=== PATIENT | female | born 1955 | race Asian ===

== ENCOUNTER 2020-08-09 08:20 | Day surgery (SDC) | payer OTHER, SELFPAY ==
[~2020-08-09] VITALS: Ht 139.7 cm; Wt 49.9 kg
[2020-08-09] MEDS ORDERED: LIDOCAINE 2% 100 MG/5 ML UJET TP ONE ×2 (11:49→13:30)
[2020-08-09] MEDS ORDERED: MIDAZOLAM 2 MG/2 ML VIAL ONE (11:49)
[2020-08-09] MEDS ORDERED: fentaNYL citrate 0.05 MG/ML VIAL ONE (11:49)
[2020-08-09] MEDS ORDERED: fentaNYL citrate 0.05 MG/ML VIAL IVP ONE (12:25)
== END 2020-08-09 13:00 | disposition home or self-care (01) ==
LOC: MDS 08:20 → MMU 08:20 → MDS 13:00
PROVIDERS: ATTEND Internal Medicine Gastroenterology
DX: Z12.11 Encounter for screening for malignant neoplasm of colon (principal); K57.30 Diverticulosis of large intestine without perforation or abscess without bleeding; I10 Essential (primary) hypertension; Z20.828 Contact with and (suspected) exposure to other viral communicable diseases; Z79.899 Other long term (current) drug therapy
CPT/HCPCS: 45378; J3010; U0003; J2250